=== PATIENT | male | born 1995 | race Caucasian/White ===

== ENCOUNTER 2025-06-25 05:32 | Emergency (ER) | payer MEDICAID, SELFPAY ==
--- OUTSIDE RECORDS SUMMARY | 2011-01-19 19:00 | XMS_ITS | Continuity of Care Document ---
Author Organization [facility] Address [address] [place] [address] Phone Care Team Providers Care Research Kennel Supervisor Name Role Phone Emerson Perez Unavailable Unavailable Procedures Procedure Date OFFICE/OUTPATIENT VISIT, EST MENINGOCOCCAL VACCINE, IM TDAP VACCINE >7 IM OFFICE/OUTPATIENT VISIT, EST Advance Directives Directive Yes / No Effective Date File Name Resuscitation Not Answered N/A N/A Life Support Not Answered N/A N/A Intubation Not Answered N/A N/A Antibiotics Not Answered N/A N/A IV Fluid Support Not Answered N/A N/A Tube Feed Not Answered N/A N/A Other Directive N/A N/A WARNING:The information contained in this section is historical and is provided for information only and does not constitute a legal document or any assurance that the information is still accurate. Please verify the information with the gonzalez of the legal document before using it for clinical purposes. Encounters Encounter Description Practice Location Reason(s) For Visit Diagnoses Date Provider Providers Copied on Encounter OFFICE/OUTPAT IENT VISIT, EST [facility], [address], [place], [id number], [place] tel:[phone] [facility] No Information 1 Maricel Olmstead. [address], [place], [id number] , [place]. tel:[phone] Family History Family Member Type Diagnosis Age At Onset No Information Immunizations Vaccine Date Status Comments [facility] Payers Payer name Insurance type Covered libertarian ID Authoriza tion(s) No Information Social History Type Description Quantity Date Captured Comments Alcohol Use Details Unknown Caffeine Use Details Unknown Tobacco Use Status No Information Smoking Status No Information Sex Male Sexual Orientation Straight or heterosexual Chief Complaint And Reason For Visit No Information Reason For Referral Reason For Referral No Information History Of Present Illness Encounter Date Complaint History Of Prese nt Illness No Information Functional Status Date Functional Assessmen t No Information Instructions Date Instruction Additional Infor mation No Information Assessments Type Assessment Date No Information Patient Care Teams Name Effective Dates (start - stop) Status Members No Information
--- OUTSIDE RECORDS SUMMARY | 2025-06-20 07:05 | XMS_ITS | Continuity of Care Document ---
Author Organization [facility] Address [address] [place] [address] Phone Care Team Providers Care Boat Pilot Name Role Phone Shiela Cash MESSER Primary Care Provider Argelia Ugarte APRN Attending Provider Care Teams Patient Care Team Team Status: Active Member Role/Relationship Status Dates Cash Kuo DO Primary Care Provider Active Patient Care Team Team Status: Inactive Member Role/Relationship Status Dates Cash Kuo DO Primary Care Provider Active Start: June 20, 2025 End: June 20, 2025Patricgalen Ugarte APRN SECURITIES RESEARCH ANALYST-CAttending Provider ActiveStart: June 20, 2025 End: June 20, 2025 Chief Complaint and Reason for Visit Chief Complaint Admit Date Sore throat, cough June 20, 2025 11:33am Allergies, Adverse Reactions, Alerts Allergen Type Severity Reaction Last Updated Verified Status No Known Allergies Allergy Unknown June 20, 2025 11:37amYesActive Social History Smoking Status Status Start Date End Date Date of Observa tion Never smoked tobacco (finding) December 14, 2023 9:47am Observation Status Observation Response Date of Response Legal Sex Male (finding) Sex Assigned At Birth1995 Family History Relationship Condition Age at Onset Recorded Date/T shaka father Hypertension Unknown Problems Active Problems Problem Diagnosis/Recorded Date Onset Date Stat us Depression December 14, 2023 8:50am Unknown Activ e Medications Medication Status Dose Units Route Directions Qty Days Refills S tart Date Stop Date End Date Reason(s) Instructions Adherence Fluoxetine 20 mg capsule Discontinued 20 MG PO Da noemy December 13, 2023 11:00pmce2024 11:37amAmoxicillin-Pot Clavulanate 875-125 mg khstgrJskzgvtwmibu6UERATUmjdv tugog92113Orcb 12th, 2024 11:00pm June 20, 2025 11:37amNo Name (No Known Home Meds)ActiveDe2024 12:00amOseltamivir (Tamiflu) 75 mg cofvlwqEtafmt46LGGQWvrst 12 yzbsq7925VgibnwhxJune 20, 2025 12:00amComplies with drug therapy Relevant Diagnostic Tests and/or Laboratory Data Laboratory Results Test Collection Date/Time Result Date/Time Result Interpretation Reference Range Result Comment Performing Site POC SARS CoV-2 Antigen June 20 11:49am June 20, 2025 11:55am Negative Influenza Type A (Rapid)June 20, 2025 11:49amJune 20, 2025 11:55am PositiveInfluenza Type B (Rapid)June 20, 2025 11:49amDece2024 11:55amNegative Vital Signs Vital Reading Result Reference Range Collection Date/Time Height 67 [in_i] June 20, 2025 11:17joCrbadm35.49 kgJune 20, 2025 11:46amBody Kbbcqiclieu68.2 [degF]97.6-99.0June 20, 2025 11:46amHeart Rate82 /min 60-100June 20, 2025 11:46amRespiratory rate18 /zaj72-66IkpsbynlJune 20, 2025 11:46amOxygen saturation by Pulse crxuyjei19 %95-100June 20, 2025 11:46am BP Tdpgitrh170 mm[Hg]100-140June 20, 2025 11:46amBP Wokyvnjed46 mm[Hg] 60-1002024 11:46amBMI (Body Mass Index)27.4 kg/z9Epdkezxv2024 11:46am Advance Directives Advance Directive Response Recorded Date/ Time Advance Directives No December 13 8:14am Insurance Providers Guarantor Steffi Steager Address [address] [place] [address] [place] [address]Home Phone: H Coverage Status Update:2025 Payer Group Member ID Coverage Type Subscriber Relationship to Subscriber Effective Date Expiration Date MMO Id: [id number] W Steager Id: [id number] [address] [place] [address] [address] [facility] [address] Home Phone: HSelfRegular Insurance [id number] J Steager Id: [id number] [address] [place] [address] [place] [phone] Home Phone: Email: [email or web address] Pay nullSelfSelf Encounters Encounter Location(s) Arrival/Admit Date Discharge/Departure Date Discharge/Departure Disposition Provider(s) Departed Physician/ Provider Office Visit -[facility] June 20, 2025 11:33am June 20, 2025 12:03pm Discharged to home care or self care (routine discharge) Argelia Ugarte APRN
[2025-06-25 05:37] VITALS: BP 136/81; PULSE 64; TEMP 36.6; O2SAT 98; BMI 27.4
--- NOTE | 2025-06-25 06:12 | ED_ITS ---
HPI - URI/Sore Throat General Chief Complaint: Upper Respiratory Infection Stated Complaint: SORE THROAT- + FLU 06/20/25 Time Seen by Provider: 06/25/25 05:50 Source: patient History of Present Illness HPI Narrative: This 29-year-old male who was diagnosed with influenza last Monday presents for evaluation of an ongoing sore throat. He has not had a fever. He has not had any vomiting or diarrhea. He states he feels like he has major inflammation in his throat and cannot swallow. He has been taking Tylenol for his pain. He has not taken any ibuprofen because he did not think about it . His mother is here with him and is also sick with the flu. He is not have any vomiting or diarrhea. He is able to tolerate a popsicle without difficulty. His voice is clear. He denies any chest pain or shortness of breath. Related Data Previous Rx's ?Medication ?Instructions ?Recorded ibuprofen 600 mg tablet 600 mg PO Q6H #20 tabs 06/25 Allergies Allergy/AdvReac Type Severity Reaction Status Date / Time No Known Drug Allergies Allergy Verified 06/25/25 05:37 Review of Systems ROS Status of ROS 10 or more systems reviewed and unremark able except as noted in history and below PFSH PFSH Social History Little interest or pleasure in doing things: not at all Feeling down, depressed, or hopeless: not at all Exam Narrative Exam Narrative: Vital signs and Nursing Notes reviewed: Patient is afebrile with a normal pulse, normal blood pressure, he is not hypoxic with pulse ox of 98% on room air General: Awake, alert, oriented, no acute distress, lying comfortably on the stretcher HEENT: Normocephalic atraumatic, mucous membranes are slightly dry, there is no posterior pharyngeal erythema or exudate. Uvula is midline, no peritonsillar abscess noted Neck: Supple, no meningeal signs, no anterior or posterior cervical lymphadenopathy Chest: Lungs are clear to auscultation with good air entry, there is no wheezing rhonchi or rales appreciated no accessory muscle use, patient is speaking in complete sentences-no chest wall tenderness to palpation CVS: Regular rate and rhythm S1-S2, no murmurs rubs or gallops, pulses are brisk and equal bilaterally ABD: Soft, nondistended, nontender, no rebound guarding or rigidity, bowel sounds are normal, no pulsatile masses appreciated Extremities: Moving all extremities, no lower extremity tenderness or swelling noted Skin: Normal in appearance without rash,pallor, petechiae or purpura Neuro: No focal deficits Constitutional Vital Signs, click to edit/add: Last Vital Signs Temp 98 F 06/25/25 05:37 Pulse 64 06/25/25 05:37 Resp 18 06/25/25 05:37 BP 136/81 06/25/25 05:37 Pulse Ox 98 06/25/25 05:37 Course Vital Signs Vital signs: Vital Signs Temperature 98 F 06/25/25 05:37 Pulse Rate 64 06/25/25 05:37 Respiratory Rate 18 06/25/25 05:37 Blood Pressure 136/81 06/25/25 05:37 Pulse Oximetry 98 06/25/25 05:37 Temperature 98 F 06/25/25 05:37 Pulse Rate 64 06/25/25 05:37 Respiratory Rate 18 06/25/25 05:37 Blood Pressure 136/81 06/25/25 05:37 Pulse Oximetry 98 06/25/25 05:37 MDM - URI/Sore Throat MDM Narrative Medical decision making narrative: This 29-year-old male presents for evaluation of a sore throat. He was recently diagnosed with influenza A. He states he feels that he has inflammation in his throat and is having difficulty swallowing. His mucous membranes are slightly dry but there is no peritonsillar abscess, uvula is midline, no pharyngeal erythema or exudate noted. Lungs are clear, abdomen is soft. He is not having any GI symptoms but notes he is not eating or drinking a lot. He tested negative for strep. He was given a popsicle which he tolerated without difficulty. He was given an IM injection of Toradol and oral Decadron for his sore throat. He does not have any anterior posterior cervical lymphadenopathy concerning for mono. He will be discharged home with recommendation for drinking plenty of fluids and a prescription for ibuprofen as he has only been taking Tylenol for his symptoms. Lab Data Attestation: I reviewed the patient's lab results. Labs: Lab Results 06/25/25 Range/Units 06:00 Streptococcus Screen Negative Discharge Plan Discharge Chief Complaint: Upper Respiratory Infection Clinical Impression: Influenza, Pharyngitis Patient Disposition: Home, Self-Care Time of Disposition Decision: 06:46 Condition: Good Prescriptions / Home Meds: New ibuprofen 600 mg tablet 600 mg PO Q6H Qty: 20 0RF Print Language: Trinidadian Instructions: Pharyngitis (ED), Influenza (ED) Referrals: DOUG HARPER [Primary Care Provider, Family Practice] - 1 week
[2025-06-25] MEDS: DEXAMETHASONE SOD PHOS 10 MG/ML VIAL PO (06:27)
[2025-06-25] MEDS: KETOROLAC TROMETHAMINE 60 MG/2 ML VIAL IM (06:27)
== END 2025-06-25 06:55 | disposition home or self-care (01) ==
PROVIDERS: Emergency Provider Emergency Medicine; PCP Family Medicine
DX: J10.1 Influenza due to other identified influenza virus with other respiratory manifestations (principal)
CPT/HCPCS: 87070; 87880; 96372; 99284; J1100; J1885